=== PATIENT | female | born 1985 | race American Indian/Alaskan Native ===

== ENCOUNTER 2021-06-06 15:24 | Emergency (ER) | payer BC ==
[2021-06-06] MEDS ORDERED: MORPHINE 4 MG/1 ML INJ ONE (15:50)
[2021-06-06] MEDS ORDERED: MORPHINE 4 MG/1 ML INJ IV ONE (15:55)
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
[2021-06-06] MEDS ORDERED: LIDOCAINE (1%) 10 MG/1 ML VIAL 20 ML MDV INFILTRATI ONE (16:51)
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
[2021-06-06] MEDS ORDERED: KETAMINE 500 MG/5 ML VIAL MDV IV ONE ×2 (18:57→18:58)
--- NOTE | 2021-06-06 21:48 | XRay Report ---
EXAMINATION: Left shoulder radiograph, 2 views, 06/06/2021 at 9:16 PM CLINICAL INFORMATION: Post reduction evaluation. History of shoulder dislocation. COMPARISON: Left shoulder radiograph, 06/06/2021 at 4:26 PM FINDINGS: There has been satisfactory interval reduction of previously noted left glenohumeral joint. Scattered amounts of air are noted within the adjacent soft tissues. There is a subtle linear lucency along the posterolateral surface of the humeral head. IMPRESSION: 1. Satisfactory interval reduction of left glenohumeral dislocation. 2. Subtle linear lucency along the posterolateral surface of the humeral head that could suggest post reduction fracture (Hill-Sachs lesion). Signer Name: Brittney Pike MD Signed: 06/06/2021 9:44 PM Workstation Name: [id number]
[2021-06-06 22:06] VITALS: BP 131/77
== END 2021-06-06 22:00 | disposition home or self-care (01) ==
LOC: ED 15:24
DX: S43.085A Other dislocation of left shoulder joint, initial encounter (principal); S42.292A Other displaced fracture of upper end of left humerus, initial encounter for closed fracture; J45.909 Unspecified asthma, uncomplicated; F12.90 Cannabis use, unspecified, uncomplicated; Z91.013 Allergy to seafood; X50.1XXA Overexertion from prolonged static or awkward postures, initial encounter; Y93.89 Activity, other specified; Y92.89 Other specified places as the place of occurrence of the external cause; Y99.8 Other external cause status
CPT/HCPCS: 23650; 73030; 96374; 99284; J2270